=== PATIENT | female | born 1980 | race Caucasian/White ===

== ENCOUNTER 2023-10-18 10:10 | Outpatient (CLI) | payer BC, SELFPAY ==
--- NOTE | 2023-10-18 10:20 | MM_ITS ---
WS: [id number] Bilateral screening 3D tomosynthesis digital mammogram, Clinical Data: SCREENING Comparison: None. Findings: The breast parenchymal pattern shows heterogeneous density. No spiculated masses or clustered calcifi cations are seen. There are no secondary signs of carcinoma. MM/[place] [id number] Impression: 1. Negative bilateral mammogram unchanged. 2. Recommend annual screening mammograms. BIRADS: 1-Negative FOLLOW UP: 1 Year Follow-up The CAD thread checker was used.
== END 2023-10-18 10:11 | disposition home or self-care (01) ==
LOC: RAD 10:12
PROVIDERS: Family Provider General Practice; PCP General Practice; Visit Provider Nurse Practitioner Family
DX: Z12.31 Encounter for screening mammogram for malignant neoplasm of breast (principal)
CPT/HCPCS: 77063; 77067

== ENCOUNTER 2024-12-24 07:54 | Outpatient (CLI) | payer BC, SELFPAY ==
--- NOTE | 2024-12-24 08:08 | US_ITS ---
WS: [id number] US pelvic complete* [id number] HISTORY: NAUSEA/ABDOMINAL BLOATING/AMMENORRHEA COMPARISON: None available. Uterus: 13.1 cm x 7.0 cm x 5.6 cm. Enlarged uterus. No fibroid identified. Endometrium: adequate measurement not performed. Suspect there may be an atrophic endometrium. Limited visualization of the endometrium. No transvaginal imaging submitted. Right ovary: 3.4 cm x 3.6 cm x 3.1 cm. Normal size and vascularity, no cystic or solid masses. Left ovary: 1.8 cm x 3.5 cm x 2.8 cm. Normal size and vascularity, no cystic or solid masses. No free fluid in the cul-de-sac. US/US pelvic complete* [id number] IMPRESSION: 1. Incomplete evaluation of the uterus and endometrium. No transvaginal imagin g submitted. Strongly recommend transvaginal pelvic ultrasound evaluation. The endometrium cannot be adequately evaluated without transvaginal imaging. 2. Uterus appears enlarged. 3. No adnexal mass. Negative ovaries.
--- NOTE | 2024-12-24 08:08 | US_ITS ---
WS: [id number] Complete ABDOMINAL ULTRASOUND HISTORY: NAUSEA/ABDOMINAL BLOATING/AMENORRHEA COMPARISON: None available. Liver: 17.3 cm in length. Mildly enlarged liver with mild coarse echotexture. The entire liver is not well seen. No intrahepatic duct dilatation. No mass identified. Portal Vein: Normal hepatopetal flow with monophasic waveform. Gallbladder: Slightly contracted gallbladder with stones. No pericholecystic fluid or gallbladder wall thickening. CBD: 0.4 cm Pancreas: Partially obscured. Right kidney: 12.5 cm x 5.9 x 5.5 cm. Cortex:1.2 cm. Normal size and echogenicity. No hydronephrosis or mass. Left kidney: 13.0 cm x 6.3 cm x 6.1 cm. Cortex: 1.1 cm. Normal size and echogenicity. No hydronephrosis or mass. Spleen: 11.2 cm. Normal size and echogenicity. Aorta and IVC: Unremarkable abdominal aorta and IVC. US/US abdomen complete* [id number] Impression: 1. Cholelithiasis without evidence for acute cholecystitis. 2. No intrahepatic duct dilatation. 3. Mild hepatomegaly with hepatic steatosis. Limited visualization of the live r. 4. No renal obstruction.
== END 2024-12-24 07:55 | disposition home or self-care (01) ==
PROVIDERS: Family Provider General Practice; PCP General Practice; Visit Provider Nurse Practitioner Family
DX: N91.2 Amenorrhea, unspecified (principal); R93.89 Abnormal findings on diagnostic imaging of other specified body structures; K80.20 Calculus of gallbladder without cholecystitis without obstruction; R16.0 Hepatomegaly, not elsewhere classified; K76.0 Fatty (change of) liver, not elsewhere classified; R93.3 Abnormal findings on diagnostic imaging of other parts of digestive tract
CPT/HCPCS: 76700; 76856

== ENCOUNTER 2025-01-03 16:03 | Outpatient (CLI) | payer BC, SELFPAY ==
--- NOTE | 2025-01-03 16:15 | US_ITS ---
WS: [id number] US transvaginal [id number] HISTORY: NAUSEA, ABDOMINAL BLOATING, AMENORRHEA COMPARISON: 12/24/2024 Uterus: 9.9 cm x 5.3 cm x 5.9 cm. Uterus is normal size. Heterogeneity within the myometrium. Several fibroids are identified. The largest 2.1 x 2.3 cm in the posterior myometrium. There is a smaller fibroid RIGHT lateral measuring 1.1 x 2.1 x 1.8 cm. Endometrium: 1.4 cm. Endometrium is measuring top normal size. There is no mass identified. Right ovary: 4.7 cm x 2.8 cm x 2.7 cm. Mildly enlarged ovary. Hypoechoic mass with cystic areas and reticulations in the RIGHT ovary measures 2.3 x 2.1 x 2.8 cm. Most likely hemorrhagic corpus luteum. Left ovary: 2.4 cm x 1.9 cm x 2.4 cm. Normal size and vascularity, no cystic or solid masses. Small, physiologic amount of free fluid in the cul-de-sac. US/US transvaginal [id number] IMPRESSION: 1. Heterogeneous uterus with several fibroids suspected. The largest measuring 2.1 x 2.3 cm in the posterior myometrium. 2. Top normal size endometrium. No mass identified.
== END 2025-01-03 16:04 | disposition home or self-care (01) ==
PROVIDERS: Family Provider General Practice; PCP General Practice; Visit Provider Nurse Practitioner Family
DX: N85.8 Other specified noninflammatory disorders of uterus (principal); D25.9 Leiomyoma of uterus, unspecified; R11.0 Nausea; N91.2 Amenorrhea, unspecified
CPT/HCPCS: 76830